=== PATIENT | male | born 1975 | race Caucasian/White ===

== ENCOUNTER → 2017-04-30 17:02 | Outpatient (CLI) | payer OTHER, SELFPAY ==
--- NOTE | 2017-04-30 17:11 | MRI_ITS ---
STUDY: MRI BRAIN WITH AND WITHOUT CONTRAST (ATTENTION PITUITARY GLAND) REASON FOR EXAM: Male, 41 years old. Microadenoma follow-up, no new complaints. TECHNIQUE: Standardized multiplanar fat and water weighted pulse sequences were obtained. 13 ml of Gadavist contrast material was administered intravenously for the contrast portion of the examination. COMPARISON: None. FINDINGS: There is a prominent pituitary gland on examination with AP measurements of 1.6 cm similar to prior 12 June 2012 with cranial caudal maximum dimension of 0.8 cm. There is a hypoenhancing region within the posterior pituitary gland with underlying small adenoma not excluded as seen on series 12 image 8 measuring 3 mm. Normal enhancement of the pituitary gland, without a demonstrated intrapituitary lesion. Normal infundibular stalk and suprasellar cistern. Normal optic chiasm and hypothalamus. Normal size of the ventricles and extra-axial spaces for the patient's age. Normal white matter tracts of the supratentorial brain. Normal bilateral basal ganglia. Normal thalami. Normal flow voids within the major intracranial circulation suggesting patency by spin echo criteria. Normal venous enhancement. There is no enhancing intra-axial or extra-axial abnormality. There is no extra-axial fluid accumulation. Normal tectal plate and pineal gland. Normal midbrain, lizbeth and medulla. Normal cerebellum. Normal basal cisterns. Normal bilateral temporal bones. Normal bilateral internal auditory canals. No demonstrated orbital abnormality, within the constraints of a routine brain study. Normal visualized paranasal sinuses. Normal calvarium and skull base. Normal visualized upper cervical spine. Normal visualized soft tissue structures. MRI/Brain W/WO Contrast IMPRESSION: 1. No evidence of acute intracranial abnormality. 2. Stable size of the pituitary gland from 12 June 2012 with posterior hypoenhancing region and small adenoma not excluded. Recommend continued serial follow-ups as clinically warranted. Electronically Signed: Norm Hammonds DO at 23:49 EST , Service support ,
== END ==
PROVIDERS: Family Provider Family Medicine; PCP Family Medicine; Visit Provider Internal Medicine Endocrinology, Diabetes & Metabolism
DX: D44.3 Neoplasm of uncertain behavior of pituitary gland (principal)
CPT/HCPCS: 70553; A9585

== ENCOUNTER → 2017-06-10 06:38 | Outpatient (CLI) | payer OTHER, SELFPAY ==
[2017-06-10 08:11] LABS: AST(SGOT) 20 U/L (15-37); Alanine Aminotransfer ALT/SGPT 28 U/L (16-61); Albumin, Serum 3.8 g/dL (3.2-5.0); Alkaline Phosphatase 64 U/L (45-117); Anion Gap 8 (5-15); BUN 11 mg/dL (7-18); BUN/Creat Ratio 9.6 RATIO (10-20); Chloride 101 mmol/L (98-107); Creatinine, Serum 1.15 mg/dL (0.70-1.30); EST Glomerular Filtration Rate 75 mL/min (>60); Est Glom Filt Rate - Afr Amer 91 mL/min (>60); Globulin 3.9 g/dL (2.2-4.2); Glucose 113 mg/dL (74-106); Potassium 3.9 mmol/L (3.5-5.1); Prolactin 22.5 ng/mL; Protein, Total 7.7 g/dL (6.4-8.2); Sodium Level 139 mmol/L (136-145)
[2017-06-11 09:04] LABS: Vitamin D,25 Hydroxy 21.2 ng/mL (29.95-100.01)
[2017-06-14 12:16] LABS: Testosterone, Free 3.67 ng/dL (5.00-21.00)
[2017-06-15 09:07] LABS: Testosterone, % Free 3.63 % (1.50-4.20); Testosterone, Total 101 ng/dL (264-916)
== END ==
PROVIDERS: Family Provider Family Medicine; PCP Family Medicine; Visit Provider Internal Medicine Endocrinology, Diabetes & Metabolism
DX: D44.3 Neoplasm of uncertain behavior of pituitary gland (principal); E29.1 Testicular hypofunction; E55.9 Vitamin D deficiency, unspecified; E22.1 Hyperprolactinemia
CPT/HCPCS: 36415; 80053; 82306; 84146; 84402; 84403

== ENCOUNTER 2017-08-07 22:51 | Emergency (ER) | payer OTHER, SELFPAY ==
[2017-08-07 22:52] VITALS: BP 189/99; PULSE 113; RESP 18; TEMP 37; O2SAT 98; BMI 41.5
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
[2017-08-07] MEDS: oxyCODONE 5 MG Tablet 10 MG PO (23:05)
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
--- NOTE | 2017-08-07 23:43 | ED.DEP ---
ED Disposition - Plan for ED Patient: Chief Complaint: Lower Extremity Injury Instructions: ED Sprain Knee Prescriptions: Oxycodone HCl/Acetaminophen [Percocet 5/325] 1 tablet PO Q6H PRN PRN 3 Days #12 tablet PRN Reason: Pain Referrals: Yared Dye MD [Primary Care Provider] -
== END 2017-08-08 00:02 | disposition home or self-care (01) ==
PROVIDERS: Emergency Provider Emergency Medicine; Family Provider Family Medicine; PCP Family Medicine
DX: S83.91XA Sprain of unspecified site of right knee, initial encounter (principal); V22.4XXA Motorcycle driver injured in collision with two- or three-wheeled motor vehicle in traffic accident, initial encounter; Y93.9 Activity, unspecified; Y92.410 Unspecified street and highway as the place of occurrence of the external cause; Y99.9 Unspecified external cause status; E78.00 Pure hypercholesterolemia, unspecified; Z72.0 Tobacco use
CPT/HCPCS: 73564; 99284

== ENCOUNTER → 2017-08-15 12:52 | Outpatient (CLI) | payer OTHER, SELFPAY ==
[2017-08-15 14:03] LABS: Prolactin 26.8 ng/mL
[2017-08-28 10:00] LABS: Testosterone, Free 2.31 ng/dL (5.00-21.00)
[2017-08-28 10:23] LABS: Testosterone, % Free 3.55 % (1.50-4.20); Testosterone, Total 65 ng/dL (264-916)
== END ==
PROVIDERS: Family Provider Family Medicine; PCP Family Medicine
DX: E29.1 Testicular hypofunction (principal)
CPT/HCPCS: 36415; 84146; 84402; 84403